=== PATIENT | male | born 1965 | race Caucasian/White ===

== ENCOUNTER → 2018-08-29 | Day surgery (SDC) | payer OTHER ==
[~2018-08-29] MED LIST: Lactated Ringers 1,000 ML IV SCH; Propofol 200 MG/20 ML SDV IV ONE
--- NOTE | 2018-08-29 14:33 | OR ---
DATE OF OPERATION: 08/29/2018 PREOPERATIVE DIAGNOSIS: EPIGASTRIC PAIN. POSTOPERATIVE DIAGNOSIS: 1. ANTRAL GASTRITIS. 2. DUODENITIS. SURGEON: Daniel Prado MD PROCEDURE: DIAGNOSTIC EGD WITH BIOPSIES X4, ROBERTO. ANESTHESIA: MAC via REFINERY OPERATOR. COMPLICATIONS: None. SPECIMEN: 1. Duodenal bulb biopsy x1. 2. Antral biopsy x3. 3. Fundal biopsy x1. 4. ROBERTO. FINDINGS: 1. Full-length EGD. 2. Mild-to moderate duodenitis, duodenal bulb. 3. Antral gastritis, acute. 4. No signs of any malignancy or ulcerations. RECOMMENDATIONS: The patient has already been placed on appropriate therapy by his primary provider. INDICATIONS: The patient presented with ongoing issues with acute epigastric pain. By the time of this scope, he had been treated with proton pump inhibitors and was improving markedly. He has a family history of gastric CA and a sister and father. He desired EGD. DESCRIPTION OF PROCEDURE: The patient was prepped and draped, placed in the left lateral decubitus position. A lubricated Olympus gastroscope was inserted over a bit, advanced to the cricopharyngeus area, and easily intubated into the esophagus. The esophageal lining was benign in its entire course. The Z-line was crisp and sharp at 40 cm. There was no obvious esophagitis or reflux seen. Maybe a very small hernia present, but no spontaneous GERD visualized. Scope was advanced in the stomach through the pylorus into the second portion of duodenum. The second portion of duodenum was benign. The duodenal bulb was inflamed with active duodenitis. Biopsy was taken. No ulcerations seen. The scope was brought back into the stomach and retroflexed. The upper fundus and cardia were completely unremarkable. Upon straightening, the rest of the fundus was essentially benign. Maybe its most distal portion started to have some signs of gastritis. We did do a biopsy of that. The antrum is inflamed throughout, most notable around the peripyloric region. No opal ulcerations or erosions were seen. Three biopsies of the antrum were taken along with a CLOtest at a non-affected portion. Air was then suctioned from the stomach, and the scope removed without complication. DAISY/TRAY /[id number]
== END ==
LOC: CC.SDS 09:57
PROVIDERS: ATTEND Family Medicine
DX: K29.50 Unspecified chronic gastritis without bleeding (principal); K29.80 Duodenitis without bleeding; D69.6 Thrombocytopenia, unspecified; R01.1 Cardiac murmur, unspecified; R39.15 Urgency of urination; E66.9 Obesity, unspecified; Z68.33 Body mass index [BMI] 33.0-33.9, adult; Z80.0 Family history of malignant neoplasm of digestive organs; Z01.818 Encounter for other preprocedural examination; Z79.891 Long term (current) use of opiate analgesic; Z79.899 Other long term (current) drug therapy
CPT/HCPCS: 87081; J2704; J7120

== ENCOUNTER 2021-12-28 14:17 | Inpatient (IN) | payer BC ==
[2021-12-28 14:53] LABS: CHLORIDE,CL 101 mEq/L (98-106); ESTIMATED GFR 89 mL/min (>=60); SODIUM,NA 138 mEq/L (136-145)
[2021-12-28] MEDS ORDERED: Docusate Sodium 100 MG Cap PO PRN (15:48)
[2021-12-28] MEDS ORDERED: Aluminum Hydroxide/Magnesium Hydroxide/Simethicone Susp 30 ML Cup PO PRN (15:48)
[2021-12-28] MEDS ORDERED: Acetaminophen 325 MG Tab PO PRN (15:48)
[2021-12-28] MEDS ORDERED: Piperacillin/Tazobactam 4.5 GM in Sodium Chloride 0.9% 100 ML IV ONE (16:30)
[2021-12-28] MEDS: Ciprofloxacin 500 MG Tab PO SCH (19:55)
[2021-12-29] MEDS: Piperacillin/Tazobactam 3.375 GM in Sodium Chloride 0.9% 100 ML IV SCH ×3 (00:07→16:36)
[2021-12-29] MEDS: Ciprofloxacin 500 MG Tab PO SCH ×2 (07:10→19:32)
[2021-12-29] MEDS: Pantoprazole 40 MG Tab.CR PO SCH (08:04)
[2021-12-30] MEDS: Piperacillin/Tazobactam 3.375 GM in Sodium Chloride 0.9% 100 ML IV SCH ×4 (00:03→23:24)
[2021-12-30] MEDS: Pantoprazole 40 MG Tab.CR PO SCH (07:35)
[2021-12-30] MEDS: Ciprofloxacin 500 MG Tab PO SCH ×2 (07:35→20:07)
[2021-12-31] MEDS: Ciprofloxacin 500 MG Tab PO SCH (06:58)
[2021-12-31] MEDS: Piperacillin/Tazobactam 3.375 GM in Sodium Chloride 0.9% 100 ML IV SCH ×2 (07:25→13:58)
[2021-12-31] MEDS: Pantoprazole 40 MG Tab.CR PO SCH (07:26)
== END 2021-12-31 15:00 | disposition home or self-care (01) | DRG 244 ==
LOC: CC.FCMC 14:17 → CC.MS 15:18 → UNDOADMIN 15:18 → CC.MS 15:48
PROVIDERS: ADMIT Nurse Practitioner Family; ATTEND Nurse Practitioner Family
DX: K57.20 Diverticulitis of large intestine with perforation and abscess without bleeding (principal); K21.9 Gastro-esophageal reflux disease without esophagitis; Z79.899 Other long term (current) drug therapy
CPT/HCPCS: 36415; 71046; 80048; 85025; 86140; 99223; 99232; 99233; 99238; A9270-GY; J2543